=== PATIENT | female | born 1970 | race Caucasian/White ===

== ENCOUNTER → 2017-09-09 | Outpatient (CLI) | payer OTHER ==
[~2017-09-09] MED LIST: ACET300T2 PO; CALC500T25 PO; CLB/200 PO; CYM/30 PO; EFF50 PO; FEXO1TAB49 PO; GLC/500 PO; MULT-506 PO
[2017-09-09 12:06] LABS: BASO % 0.2 %; BASO ABS # 0.01 K/uL (0-0.2); COMPLETE YES; EOS % 1.1 %; IG% 0.4 %; LYMPH % 27.8 %; LYMPH ABS # 1.58 K/uL (1.2-3.4); MEAN CELL VOLUME 81.7 fL (80-100); MEAN CORPUSCULAR HEMOGLOBIN 25.4 pg (25-34); MEAN CORPUSCULAR HGB CONC 31.1 g/dl (32-36); MONO % 8.6 %; NEUT % 61.9 %; PLATELET COUNT 272 K/uL (130-400); RED BLOOD COUNT 4.65 M/uL (4.2-5.4); WHITE BLOOD COUNT 5.68 K/uL (4.8-10.8)
[2017-09-09 12:15] LABS: ALT/SGPT 52 U/L (12-78); BLOOD UREA NITROGEN 12 mg/dl (7-18); CARBON DIOXIDE 30 mmol/L (21-32); CHLORIDE 105 mmol/L (98-107); CHOLESTEROL 177 mg/dl (0-200); GLUCOSE 109 mg/dl (70-99); POTASSIUM 4.5 mmol/L (3.5-5.1); SODIUM 140 mmol/L (136-145); TRIGLYCERIDES 191 mg/dl (0-150); VERY LOW DENSITY LIPOPROT CALC 38 mg/dl
[2017-09-09 12:22] LABS: ESTIMATED AVERAGE GLUCOSE 120 mg/dl; HA1C FLAG Normal (Normal)
[2017-09-09 12:26] LABS: ALB/GLOB RATIO 1.1 (0.9-2); ALKALINE PHOSPHATASE 116 U/L (45-117); AST/SGOT 31 U/L (15-37); HDL CHOLESTEROL 44 mg/dl; LDL CHOLESTEROL CALCULATED 95 mg/dl
[2017-09-09 12:35] LABS: RATIO 8.6 mcg/mg (0-30.0)
== END | disposition home or self-care (01) ==
LOC: C.LABBFT 08:06
PROVIDERS: ATTEND Nurse Practitioner Adult Health
DX: E11.9 Type 2 diabetes mellitus without complications (principal)

== ENCOUNTER → 2018-01-31 | Day surgery (SDC) | payer OTHER ==
[2018-01-11 12:22] VITALS: Ht 180.3 cm; Wt 156.8 kg
[~2018-01-31] VITALS: Ht 180.3 cm; Wt 156.8 kg
[~2018-01-31] MED LIST changes: -ACET300T2 PO; -CALC500T25 PO; +CALC600T9 PO; -CLB/200 PO; +DICL50TA3 PO; -EFF50 PO; -FEXO1TAB49 PO; -GLC/500 PO; +LIDOCAINE HCL 2% 2 ML VIAL (20MG/ML) ONE; +LORA10CA2 PO; +MAGNESIUM PO; +MIDAZOLAM HCL 1 MG/ML 2ML VIAL ONE; +ONDANSETRON INJ 2 MG/ML 2 ML VIAL ONE; +PROPOFOL IV EMULSION 10 MG/ML 20 ML VIAL IV ONE; +PYRI100T4 PO; +SODIUM CHLORIDE 0.9% 500ML 500 ML IV ONE; +VENL150C56 PO; +VITA1TAB22 PO; +VITAMIN B12 PO
--- NOTE | 2018-01-31 11:32 | Endo History and Physical ---
History & Physical Date of Service: Jan 31, 2018. Chief Complaint: Screening, Personal history of polyps, family history of Colon cancer Referring Physician: Nurys Chang History of Present Illness 47 yo CF who presents for colonoscopy secondary to history of colon polyps and family history of colon cancer. Past Surgical History Hx Cardiac Surgery: No Hx Internal Defibrillator: No Hx Pacemaker: No Hx Abdominal Surgery: Yes (ABELINO, UTERINE ALBATION) Hx of Implantable Prosthesis: No Hx Post-Op Nausea and Vomiting: No Hx Cancer Surgery: No Hx Thoracic Surgery: No Hx Orthopedic: Yes (RT KNEE ARTHROSCOPY) Hx Urinary Tract Surgery: No Family History Colon CA, IBD Social History Smoking Status: Former Smoker Hx Substance Use: No Hx Alcohol Use: Yes (OCCASIONALLY) Allergies Coded Allergies: Bupropion (Verified Allergy, Unknown, HIVES, 01/31/18) Clonazepam (Verified Allergy, Unknown, HIVES, THROAT CLOSES, 01/31/18) Uncoded Allergies: ENVIRONMENTAL ALLERGIES (Allergy, Unknown, ., 01/11/18) Current Medications Reported Home Medications Medications Dose Route/Sig Max Daily Dose Days Date Category K2 Plus D3 100-1000 Mcg-Unit (Vitamin D & K) 1 Tab Tab 1 Tab PO DAILY 01/11/18 Reported Effexor Extended Rel (Venlafaxine Hcl) 150 Mg Cap 2 Cap PO BID 01/11/18 Reported Cymbalta (Duloxetine HCl) 30 Mg Cap 1 Cap PO QAM 01/11/18 Reported Voltaren (Diclofenac Sodium) 50 Mg Tabec 50 Mg PO 2-3XDAILY 01/11/18 Reported Multivitamin (Multivitamins) Tab 1 Tab PO DAILY 01/11/18 Reported Claritin (Loratadine) 10 Mg Cap 10 Mg PO DAILY PRN 01/11/18 Reported Calcium + D (Calcium Carbonate-Vitamin D) 1 Tab Tab 1 Tab PO DAILY 01/11/18 Reported Vitamin B6 100 Mg (Pyridoxine Hcl) 100 Mg Tab 100 Mg PO DAILY 01/11/18 Reported [Vitamin B12] 5,000 Mcg PO DAILY 01/11/18 Reported Vital Signs Weight (Kilograms): 156.82 Height (Feet): 5 Height (Inches): 11 Date Time Temp Pulse Resp B/P (MAP) Pulse Ox O2 Delivery O2 Flow Rate FiO2 01/31/18 11:01 36.9 74 20 145/84 (104) 94 Room Air Physical Exam General Appearance: WD/WN, no apparent distress Respiratory/Chest: Auscultation: breath sounds normal Cardiovascular: Heart Auscultation: RRR Abdomen: Bowel Sounds: normal Inspection & Palpation: soft, non-distended, no tenderness, guarding & rebound Assessment and Plan Assessment: 47 yo CF who presents for colonoscopy secondary to history of colon polyps and family history of colon cancer. Plan: Proceed with colonoscopy.
--- NOTE | 2018-01-31 12:44 | GI REPORT ---
Procedure Date: 01/31/2018 11:28 AM Procedure: Colonoscopy Indications: High risk colon cancer surveillance: Personal history of colonic polyps, Family history of colon cancer in a first-degree relative Medicines: Monitored Anesthesia Care Complications: No immediate complications. Estimated Blood Loss: Estimated blood loss: none. Procedure: Pre-Anesthesia Assessment: - Prior to the procedure, a History and Physical was performed, and patient medications and allergies were reviewed. The patient's tolerance of previous anesthesia was also reviewed. The risks and benefits of the procedure and the sedation options and risks were discussed with the patient. All questions were answered, and informed consent was obtained. Prior Anticoagulants: The patient has taken no previous anticoagulant or antiplatelet agents. ASA Grade Assessment: III - A patient with severe systemic disease. After reviewing the risks and benefits, the patient was deemed in satisfactory condition to undergo the procedure. After I obtained informed consent, the scope was passed under direct vision. Throughout the procedure, the patient's blood pressure, pulse, and oxygen saturations were monitored continuously. The scope was introduced through the anus and advanced to the terminal ileum. The colonoscopy was performed without difficulty. The patient tolerated the procedure well. The quality of the bowel preparation was good. The terminal ileum, ileocecal valve, appendiceal orifice, and rectum were photographed. Findings: The perianal and digital rectal examinations were normal. Multiple small-mouthed diverticula were found in the sigmoid colon. Non-bleeding internal hemorrhoids were found during retroflexion. The hemorrhoids were small. Impression: - Diverticulosis in the sigmoid colon. - Non-bleeding internal hemorrhoids. - No specimens collected. Recommendation: - Resume previous diet. - Continue present medications. - Repeat colonoscopy in 5 years for surveillance. - Return to primary care physician as previously scheduled. Arsh Brewer DO 01/31/2018 12:44:35 PM This report has been signed electronically. Note Initiated On: 01/31/2018 11:28 AM I attest to the content of the Intraoperative Record and orders documented therein, exceptions below
--- NOTE | 2018-01-31 12:46 | Discharge Instructions ---
Endoscopy Patient Instructions Date / Procedure(s) Performed Jan 31, 2018. Colonoscopy Allergy Information Coded Allergies: Bupropion (Verified Allergy, Unknown, HIVES, 01/31/18) Clonazepam (Verified Allergy, Unknown, HIVES, THROAT CLOSES, 01/31/18) Uncoded Allergies: ENVIRONMENTAL ALLERGIES (Allergy, Unknown, ., 01/11/18) Discharge Date / Findings Jan 31, 2018. Diverticulosis Internal hemorrhoids Medication Instructions OK to resume all medications today as prescribed Reported Home Medications Medications Dose Route/Sig Max Daily Dose Days Date Category K2 Plus D3 100-1000 Mcg-Unit (Vitamin D & K) 1 Tab Tab 1 Tab PO DAILY 01/11/18 Reported Effexor Extended Rel (Venlafaxine Hcl) 150 Mg Cap 2 Cap PO BID 01/11/18 Reported Cymbalta (Duloxetine HCl) 30 Mg Cap 1 Cap PO QAM 01/11/18 Reported Voltaren (Diclofenac Sodium) 50 Mg Tabec 50 Mg PO 2-3XDAILY 01/11/18 Reported Multivitamin (Multivitamins) Tab 1 Tab PO DAILY 01/11/18 Reported Claritin (Loratadine) 10 Mg Cap 10 Mg PO DAILY PRN 01/11/18 Reported Calcium + D (Calcium Carbonate-Vitamin D) 1 Tab Tab 1 Tab PO DAILY 01/11/18 Reported Vitamin B6 100 Mg (Pyridoxine Hcl) 100 Mg Tab 100 Mg PO DAILY 01/11/18 Reported [Vitamin B12] 5,000 Mcg PO DAILY 01/11/18 Reported Provider Instructions Activity Restrictions - No exercising or heavy lifting for 24 hours. - Do not drink alcohol the day of the procedure. - Do not drive a car or operate machinery until the day after the procedure. - Do not make any important decisions or sign important papers in 24 hours after the procedure. Following Day: - Return to full activity which may include returning to work/school. Diet Start your diet with liquids and light foods (jello, soup, juice, toast). Then eat your usual diet if not nauseated. Treatment For Common After Affects For mild abdominal pain, bloating, or excessive gas: - Rest - Eat lightly - Lie on right side Follow-Up Information Follow-up with Nurys Chang as scheduled Anesthesia Information What You Should Know You have had a procedure that required some medicine to reduce anxiety and discomfort. This treatment is called moderate sedation. After receiving the treatment, you may be sleepy, but you will be able to breathe on your own. The effects of the treatment may last for several hours. Follow these instructions along with Activity/Diet recommendations noted above: * Do NOT do anything where dizziness or clumsiness would be dangerous. * Rest quietly at home today, then you can be up and about tomorrow. * Have a responsible person stay with you the rest of today. * You may have had an I.V. today. If so, you may take the dressing off later today. Recommendations Call your doctor if: * Trouble breathing * Continuous vomiting for more than 24 hours * Temperature above 101 degrees * Severe abdominal pain or bloating * Pain not relieved by pain medicine ordered * There is increased drainage or redness from any incision * A large amount of rectal bleeding greater than 2-3 tablespoons. (If you had a polyp/s removed or have hemorrhoids, a small amount of blood - from the rectum is to be expected.) * You have any unanswered questions or concerns. IN THE EVENT OF A SERIOUS EMERGENCY, GO TO THE NEAREST EMERGENCY ROOM Your discharge instructions were prepared by provider Arsh Brewer. Patient Instructions Signature Page Carol Walker Patient (or Guardian) Signature/Date: I have read and understand the instructions given to me by my caregivers. Caregiver/RN/Doctor Signature/Date: The above-named patient and/or guardian has received patient instructions on this date. + Original Patient Signature Page (only) stays with chart. Please make copy for patient.
[2018-01-31 13:15] VITALS: BP 147/76; PULSE 69; O2SAT 98
== END | disposition home or self-care (01) ==
LOC: C.GI 10:16
PROVIDERS: ATTEND Internal Medicine
DX: Z12.11 Encounter for screening for malignant neoplasm of colon (principal); Z86.010 Personal history of colon polyps; Z83.71 Family history of colonic polyps; K57.30 Diverticulosis of large intestine without perforation or abscess without bleeding; K64.8 Other hemorrhoids; K21.9 Gastro-esophageal reflux disease without esophagitis; I10 Essential (primary) hypertension; G47.33 Obstructive sleep apnea (adult) (pediatric); Z90.49 Acquired absence of other specified parts of digestive tract; Z80.0 Family history of malignant neoplasm of digestive organs